=== PATIENT | female | born 1935 ===

== ENCOUNTER 2020-07-17 10:25 | Inpatient (IN) | payer OTHER ==
[~2020-07-17] VITALS: Ht 152.4 cm; Wt 64.0 kg
[2020-07-17] MEDS ORDERED: LOTREL 5-20 MG1 CAP PO (10:45)
[2020-07-17] MEDS ORDERED: METFORMIN HCL1000 M2 PO (10:45)
[2020-07-27] MEDS ORDERED: PRILOSEC OTC20 MG PO (13:39)
[2020-07-27] MEDS ORDERED: ULTRACET PO (13:39)
== END 2020-07-27 16:30 | disposition home or self-care (01) | DRG 331 ==
LOC: O/R 07-24 05:50 → SURH 07-24 05:50
PROVIDERS: ADMIT Surgery; ATTEND Surgery
PROC: 07TB4ZZ Resection of Mesenteric Lymphatic, Percutaneous Endoscopic Approach (ICD-10-PCS; 2020-07-24)
PROC: 3E0F7GC Introduction of Other Therapeutic Substance into Respiratory Tract, Via Natural or Artificial Opening (ICD-10-PCS; 2020-07-24)
PROC: 0DTF4ZZ Resection of Right Large Intestine, Percutaneous Endoscopic Approach (ICD-10-PCS; principal; 2020-07-24 10:15)
DX: C20 Malignant neoplasm of rectum (principal); Z20.828 Contact with and (suspected) exposure to other viral communicable diseases; D12.2 Benign neoplasm of ascending colon; I11.9 Hypertensive heart disease without heart failure

== ENCOUNTER 2020-08-01 12:22 | Emergency (ER) | payer OTHER ==
[~2020-08-01] VITALS: Ht 154.9 cm; Wt 62.6 kg
[~2020-08-01 12:22] MED LIST: LOTREL 5-20 MG1 CAP PO; METFORMIN HCL1000 M2 PO; PRILOSEC OTC20 MG PO; ULTRACET PO
[2020-08-01] MEDS ORDERED: [UNRECOGNIZED DRUG - OTHER] (13:07)
== END 2020-08-01 15:37 | disposition home or self-care (01) ==
LOC: ER 12:22
DX: K91.841 Postprocedural hemorrhage of a digestive system organ or structure following other procedure (principal); T81.89XS Other complications of procedures, not elsewhere classified, sequela; E11.9 Type 2 diabetes mellitus without complications; I10 Essential (primary) hypertension